=== PATIENT | female | born 1965 | race Caucasian/White ===

== ENCOUNTER → 2017-04-01 | Outpatient (CLI) | payer OTHER ==
[~2017-04-01] MED LIST: BENADRYL25 MG PO; CELEXA40 MG PO; CYCLOBENZAPRINE10 MG PO; ESTROVEN PO; EXCEDRIN TENSION HA PO; FLONASE NASAL S16 GM NS; OSCAL 500MG/VI500 MG PO; PRILOSEC 20MG20 MG PO; SUDAFED 30M30 MG/TAB PO
== END ==
LOC: MC.RAD 13:40
DX: Z12.31 Encounter for screening mammogram for malignant neoplasm of breast (principal)

== ENCOUNTER → 2018-07-13 | Outpatient (CLI) | payer OTHER | LOC: MC.RAD 04-20 11:00 | DX: Z12.31 Encounter for screening mammogram for malignant neoplasm of breast (principal) ==

== ENCOUNTER → 2019-08-05 | Outpatient (CLI) | payer OTHER | LOC: MC.RAD 14:00 | DX: Z12.31 Encounter for screening mammogram for malignant neoplasm of breast (principal) ==

== ENCOUNTER → 2020-07-19 | Outpatient (CLI) | payer OTHER | LOC: MC.RAD 12:48 | DX: Z12.31 Encounter for screening mammogram for malignant neoplasm of breast (principal) ==

== ENCOUNTER → 2021-12-02 | Outpatient (CLI) | payer OTHER | LOC: MC.RAD 10:23 | DX: Z12.31 Encounter for screening mammogram for malignant neoplasm of breast (principal) ==

== ENCOUNTER → 2023-06-30 | Outpatient (CLI) | payer OTHER | LOC: MC.RAD 16:00 | DX: Z12.31 Encounter for screening mammogram for malignant neoplasm of breast (principal) ==